=== PATIENT | female | born 1990 | race Caucasian/White ===

== ENCOUNTER 2017-01-03 11:24 | Day surgery (SDC) | payer OTHER ==
[~2017-01-03] VITALS: Ht 152.4 cm; Wt 61.9 kg
[2017-01-03] VITALS (12 sets, daily range): BP systolic 90–129; BP diastolic 54–80; PULSE 72–102; RESP 16–27; Ht 152.4 cm; Wt 61.9 kg
[2017-01-03] MEDS ORDERED: CEFAZOLIN 2 GM/50 ML (PMX) 50 ML IVPB ONE (12:00)
[2017-01-03] MEDS ORDERED: SOD CHLORIDE 0.9% 1,000 ML IV SCH (12:00)
[2017-01-03] MEDS ORDERED: POLYMYXIN/BACITRACIN 1L IRRIG ONE (12:34)
[2017-01-03] MEDS ORDERED: BUPIVACAINE 0.25% (MPF) 30 ML INJ ONE (12:34)
[2017-01-03] MEDS ORDERED: GLYCOPYRROLATE 0.4 MG INJ ONE ×2 (13:31→14:02)
[2017-01-03] MEDS ORDERED: ROCURONIUM 50 MG INJ ONE (13:31)
[2017-01-03] MEDS ORDERED: LIDOCAINE 2% (SDV) 5 ML INJ ONE (13:31)
[2017-01-03] MEDS ORDERED: SUCCINYLCHOLINE CHLORIDE 100 MG/5 ML SYG IV ONE (13:31)
[2017-01-03] MEDS ORDERED: NEOSTIGMINE 3 MG/3 ML SYRINGE ONE (13:31)
[2017-01-03] MEDS ORDERED: MEPERIDINE 100 MG INJ ONE (13:31)
[2017-01-03] MEDS ORDERED: PROPOFOL 20 ML ONE (13:31)
[2017-01-03] MEDS ORDERED: CEFAZOLIN 1 GM INJ ONE (13:43)
[2017-01-03] MEDS ORDERED: ONDANSETRON 4 MG INJ ONE (13:43)
[2017-01-03] MEDS ORDERED: METOCLOPRAMIDE 10 MG INJ ONE (13:43)
--- NOTE | 2017-01-03 14:22 | OPR ---
Date/Time of Note Date/Time of Note DATE: 01/03/17 TIME: 14:16 Operative Report Procedure Date: Jan 03, 2017 Preoperative Diagnosis incarcerated ventral hernia Postoperative Diagnosis same Operation Performed 1. laparoscopic incarcerated ventral hernia repair cpt code 70296 2. implantation of mesh cpt code 02948 3. laparoscopic transversus abdominis plane block cpt code 09582 Surgeon: Travis BARRIOS Indications This is a 26-year-old female with an incarcerated ventral hernia. She requires surgical repair. Risks alternatives benefits in personal discussed the patient. Patient expresses understanding and consents to the operation Procedure Description Patient is taken to the OR and prepped and draped in usual sterile fashion. Surgical timeout was performed IV antibiotics are given. Left upper quadrant 5 mm transverse incision is made with a 15 blade using a 5 mm optical trocar optical and she is performed. Laparoscopic transversus abdominis plane block is performed by identifying port site and placing under direct visualization therapeutics local anesthesia. This is placed into the left flank and left lower quadrant port site incisions. Left flank 12 mm optical trocar was placed under direct visualization. Left lower quadrant 5 mm optical trocar was placed under direct visualization. Attention is paid to the ventral hernia. Incarcerated contents was reduced and excised using laparoscopic harmonic jeronimo. The fascial edges are identified. Using a #1 Prolene and Endo Close laparoscopically the defect is closed. Under laparoscopic guidance direct visualization local anesthesia was also injected into the ventral hernia site of closure. Underlay mesh is secured in place with 10 x [address] This is secured in place with secure strap. There is good hemostasis. Attention was then paid to the left upper quadrant port site. Under direct laparoscopic guidance transabdominal plane block is performed by injecting local anesthesia the port site. There is good hemostasis. Ports are removed under direct visualization. Skin is closed using skin tirso. Dry dressings were applied. Travis BARRIOS Jan 03, 2017 14:22
[2017-01-03] MEDS ORDERED: HYDROmorphONE (0.2 MG/ML) 10ML SYG IV ONE (14:26)
[2017-01-03] MEDS ORDERED: morphine (1 MG/ML) 10ML SYRINGE IV PRN ×3 (14:30)
[2017-01-03] MEDS ORDERED: METOCLOPRAMIDE 10 MG INJ IV PRN (14:30)
[2017-01-03] MEDS ORDERED: HYDROmorphONE (0.2 MG/ML) 10ML SYG IV PRN ×3 (14:30)
[2017-01-03] MEDS ORDERED: hydrALAzine 20 MG INJ IV PRN (14:30)
[2017-01-03] MEDS ORDERED: ONDANSETRON 4 MG INJ IV PRN (14:30)
[2017-01-03] MEDS ORDERED: FENTAnyl 50 MCG/ML VIAL IV PRN ×3 (14:30)
[2017-01-03] MEDS ORDERED: MEPERIDINE 25 MG INJ IV PRN (14:30)
[2017-01-03] MEDS ORDERED: DIPHENHYDRAMINE 50 MG INJ IV PRN (14:30)
[2017-01-03] MEDS ORDERED: LABETALOL HCL 20MG INJ IV PRN (14:30)
[2017-01-03] MEDS ORDERED: EPHEDrine SULFATE 50 MG/5 ML SYG IV PRN (14:30)
[2017-01-03] MEDS ORDERED: OXYCODONE/ACETAMINOPHEN (5/325) TAB PO PRN ×2 (14:30)
[2017-01-03] MEDS ORDERED: HYDROCODONE/APAP (5/325) TAB PO ONE (14:30)
[2017-01-03] MEDS ORDERED: MIDAZOLAM 1 MG/ML 2 ML INJ IV PRN (14:30)
== END 2017-01-03 17:00 | disposition home or self-care (01) ==
LOC: SDS 11:24
PROVIDERS: ATTEND Surgery
DX: K43.6 Other and unspecified ventral hernia with obstruction, without gangrene (principal)
CPT/HCPCS: 49653; 84703; C1781; J0690; J1170; J2175; J2405; J2710; J2765; J7999; Z7512; Z7610

== ENCOUNTER 2017-12-28 10:23 | Day surgery (SDC) | END 2017-12-28 18:25 | disposition home or self-care (01) ==